=== PATIENT | female | born 2000 | race Caucasian/White ===

== ENCOUNTER 2021-07-13 12:28 | Observation (INO) | payer MEDICAID ==
[~2021-07-13] VITALS: Ht 160 cm; Wt 122.5 kg
[2021-07-13] MEDS ORDERED: AMOX-494 MT (13:56)
[2021-07-13] MEDS ORDERED: PREN-118 PO (13:56)
== END 2021-07-13 15:50 | disposition home or self-care (01) ==
LOC: 8 EST LDRP 12:28
PROVIDERS: ADMIT Obstetrics & Gynecology; ATTEND Obstetrics & Gynecology
DX: O36.8130 Decreased fetal movements, third trimester, not applicable or unspecified (principal); Z3A.38 38 weeks gestation of pregnancy
CPT/HCPCS: 59025; 76805; 76818; 99281; G0378

== ENCOUNTER 2021-07-16 13:25 | Observation (INO) | payer MEDICAID ==
[~2021-07-16] VITALS: Ht 160 cm; Wt 113.4 kg
[~2021-07-16 13:25] MED LIST: AMOX-494 MT; PREN-118 PO
== END 2021-07-16 17:10 | disposition home or self-care (01) ==
LOC: 8 EST LDRP 13:25
PROVIDERS: ADMIT Obstetrics & Gynecology; ATTEND Obstetrics & Gynecology
DX: O36.8130 Decreased fetal movements, third trimester, not applicable or unspecified (principal); Z3A.38 38 weeks gestation of pregnancy
CPT/HCPCS: 59025; 76815; 76818; G0378; 99281

== ENCOUNTER 2021-07-23 07:02 | Inpatient (IN) | payer MEDICAID ==
[~2021-07-23] VITALS: Ht 160 cm; Wt 113.4 kg
[2021-07-23] MEDS ORDERED: NALOXONE HCL 0.4 MG/ML 1ML VIAL IM PRN (12:00)
[2021-07-23] MEDS ORDERED: METHYLERGONOVINE MALEATE 0.2 MG/ML IM PRN (12:00)
[2021-07-23] MEDS ORDERED: RHO(D) IMMUNE GLOBULIN 300 MCG/SYR IM NR (12:00)
[2021-07-23] MEDS ORDERED: DEXT 5%/LR + PITOCIN 20UNITS/L 1,000 ML IV SCH (12:00)
[2021-07-23] MEDS ORDERED: DEXT 5%/LACTATED RINGERS 1,000 ML IV SCH (12:00)
[2021-07-23] MEDS ORDERED: LIDOCAINE HCL 1% 10 MG/ML 10ML VIAL IJ SCH (12:00)
[2021-07-23] MEDS: MISOPROSTOL 100MCG TABLET VG SCH ×2 (13:02→17:06)
[2021-07-23] MEDS: LACTATED RINGERS 1,000 ML IV SCH ×3 (13:17→23:32)
[2021-07-23 14:41] LABS: BASOPHILS % 0.2 % (0.0-2.0); EOSINOPHILS % 0.2 % (0.0-5.0); HEMATOCRIT. 40.1 % (36.0-48.0); HEMOGLOBIN. 13.8 g/dL (12.0-16.0); LYMPHOCYTES % 21.1 % (20.0-50.0); MEAN CORPUSCULAR HEMOGLOBIN 29.8 pg (28.0-32.0); MEAN CORPUSCULAR VOLUME 86.7 fL (81.0-99.0); MEAN PLATELET VOLUME 10.6 fl (7.4-10.4); MONOCYTES % 5.6 % (2.0-8.0); NEUTROPHILS % 72.9 % (40.0-76.0); PLATELET 145 x1000/uL (130-400); RED BLOOD CELL COUNT 4.63 mill/uL (4.2-5.4); RED CELL DISTRIBUTION WIDTH 13.2 % (11.6-14.6)
[2021-07-23 14:53] LABS: INR 0.9; PARTIAL THROMBOPLASTIN TIME 28.1 sec (23.4-31.0); PROTHROMBIN TIME 9.8 sec (9.6-11.0)
[2021-07-23 15:16] LABS: CLARITY URINE CLEAR (CLEAR); COLOR URINE YELLOW (YELLOW); KETONES URINE NEGATIVE (NEGATIVE); LEUKOCYTE ESTERASE URINE NEGATIVE (NEGATIVE); NITRITE URINE NEGATIVE (NEGATIVE); OCCULT BLOOD URINE NEGATIVE (NEGATIVE); PROTEIN URINE NEGATIVE (NEGATIVE); SPECIFIC GRAVITY URINE 1.027 (1.005-1.030); UROBILINOGEN URINE 0.2 E.U./dL (0.2-1.0)
[2021-07-23 15:19] LABS: HEPATITIS B SURFACE ANTIGEN NEGATIVE
[2021-07-23 15:20] LABS: *BARBITURATES SCREEN URINE NEGATIVE (NEGATIVE)
[2021-07-23 15:21] LABS: *AMPHETAMINES SCREEN URINE NEGATIVE (NEGATIVE); *BENZODIAZEPINES SCREEN URINE NEGATIVE (NEGATIVE); *COCAINE SCREEN URINE NEGATIVE (NEGATIVE); METHADONE URINE SCREEN NEGATIVE (NEGATIVE); OPIATES URINE SCREEN NEGATIVE (NEGATIVE)
[2021-07-23 15:22] LABS: CANNABINOID URINE SCREEN NEGATIVE (NEGATIVE); PHENCYCLIDINE URINE SCREEN NEGATIVE (NEGATIVE)
[2021-07-23] MEDS ORDERED: FENTANYL CITRATE/PF 50MCG/ML 2ML VIAL ONE (18:30)
[2021-07-23] MEDS ORDERED: ROPIVACAINE HCL/PF 100ML 100 ML ONE (18:31)
[2021-07-23] MEDS ORDERED: BUPIVACAINE HCL/PF 0.25% (2.5MG/ML) 10ML ONE (18:31)
[2021-07-24] MEDS ORDERED: PHENYLEPHRINE HCL 10 MG/ML 1ML (IV VIAL) IV ONE (01:48)
[2021-07-24] MEDS ORDERED: ONDANSETRON HCL 4MG/2ML INJ IV PRN ×2 (02:00→03:15)
[2021-07-24] MEDS ORDERED: HYDROMORPHONE HCL/PF 2MG/ML CPJ IV PRN (02:00)
[2021-07-24] MEDS ORDERED: DIPHENHYDRAMINE 50MG/ML VIAL IV PRN (02:00)
[2021-07-24] MEDS ORDERED: MEPERIDINE HCL/PF 25MG/ML CPJ IV PRN (02:00)
[2021-07-24] MEDS ORDERED: BUTORPHANOL TARTRATE 2 MG/ML VIAL IM PRN (02:00)
[2021-07-24] MEDS ORDERED: LABETALOL 5MG/ML SYR 20 MG/4 ML SYRINGE IV PRN (02:00)
[2021-07-24] MEDS ORDERED: MIDAZOLAM HCL 2 MG/2 ML VIAL ONE (02:26)
[2021-07-24] MEDS ORDERED: FENTANYL CITRATE/PF 50MCG/ML 2ML VIAL ONE (02:26)
[2021-07-24] MEDS ORDERED: MORPHINE SULFATE/PF 1MG/ML 10ML AMP ONE (02:28)
[2021-07-24] MEDS ORDERED: HYDROCODONE/ACETAMINOPHEN 5/325MG TABLET PO PRN ×2 (03:15)
[2021-07-24] MEDS ORDERED: RHO(D) IMMUNE GLOBULIN 300 MCG/SYR IM PRN (03:15)
[2021-07-24] MEDS ORDERED: DEXT 5%/LR + PITOCIN 20UNITS/L 1,000 ML IV SCH (03:15)
[2021-07-24] MEDS ORDERED: BISACODYL 10MG SUPP PR PRN (03:15)
[2021-07-24] MEDS ORDERED: DIPHENHYDRAMINE 25MG CAPSULE PO PRN (03:15)
[2021-07-24] MEDS ORDERED: LANOLIN OINT 7GM TUBE TOP PRN (03:15)
[2021-07-24] MEDS: KETOROLAC 30MG/ML VIAL IV PRN ×2 (04:05→18:13)
[2021-07-24 05:15] VITALS: BP 112/58
[2021-07-24 08:00] VITALS: BP 103/66
[2021-07-24] MEDS ORDERED: TETANUS, DIPHTHERIA, PERTUSSIS VAC/PF 0.5ML (>10YR OLD) IM ONE (09:00)
[2021-07-24 12:30] VITALS: BP 120/68
[2021-07-24 16:08] VITALS: BP 106/58
[2021-07-24] MEDS: LACTATED RINGERS 1,000 ML IV SCH (18:19)
[2021-07-24 20:00] VITALS: BP 110/62
[2021-07-24] MEDS ORDERED: DOCUSATE SODIUM 100MG CAPSULE PO SCH (21:00)
[2021-07-25 04:00] VITALS: BP 98/62
[2021-07-25 06:04] LABS: BASOPHILS % 0.3 % (0.0-2.0); EOSINOPHILS % 0.6 % (0.0-5.0); HEMATOCRIT. 33.6 % (36.0-48.0); HEMOGLOBIN. 11.4 g/dL (12.0-16.0); LYMPHOCYTES % 15.9 % (20.0-50.0); MEAN CORPUSCULAR HEMOGLOBIN 29.7 pg (28.0-32.0); MEAN CORPUSCULAR VOLUME 87.4 fL (81.0-99.0); MEAN PLATELET VOLUME 10.5 fl (7.4-10.4); MONOCYTES % 7.5 % (2.0-8.0); NEUTROPHILS % 75.7 % (40.0-76.0); PLATELET 113 x1000/uL (130-400); RED BLOOD CELL COUNT 3.84 mill/uL (4.2-5.4); RED CELL DISTRIBUTION WIDTH 13.3 % (11.6-14.6)
[2021-07-25 07:40] VITALS: BP 108/71
[2021-07-25] MEDS: PRENATAL VIT/FE FUMARATE/FA TABLET PO SCH (08:48)
[2021-07-25] MEDS: IBUPROFEN 400MG TABLET PO PRN ×3 (08:49→22:52)
[2021-07-25 15:04] VITALS: BP 115/81
[2021-07-25 20:30] VITALS: BP 115/73
[2021-07-26 03:30] VITALS: BP 110/79
[2021-07-26] MEDS: IBUPROFEN 400MG TABLET PO PRN ×2 (04:16→10:43)
[2021-07-26 07:52] VITALS: BP 107/77
[2021-07-26] MEDS: PRENATAL VIT/FE FUMARATE/FA TABLET PO SCH (08:32)
[2021-07-26] MEDS ORDERED: IBUP-2029 MT (10:07)
== END 2021-07-26 11:10 | disposition home or self-care (01) | DRG 540 ==
LOC: 8 EST LDRP 07:02 → OBSVTOIN 07:03 → 8EST 07-24 04:21
PROVIDERS: ADMIT Obstetrics & Gynecology; ATTEND Obstetrics & Gynecology
PROC: 10D00Z1 Extraction of Products of Conception, Low, Open Approach (ICD-10-PCS; principal; 2021-07-24)
DX: O76 Abnormality in fetal heart rate and rhythm complicating labor and delivery (principal); D62 Acute posthemorrhagic anemia; O41.03X0 Oligohydramnios, third trimester, not applicable or unspecified; O90.81 Anemia of the puerperium; Z20.822 Contact with and (suspected) exposure to COVID-19; O36.8130 Decreased fetal movements, third trimester, not applicable or unspecified; Z37.0 Single live birth; Z3A.39 39 weeks gestation of pregnancy
CPT/HCPCS: 36415; 76815; 76818; 80305; 81003; 85025; 86592; 86703; 86762; 86850; 86900; 87340; 87426; 88307; 90715; G0378; J1885; J2250; J2274; J2370; J2590; J2795; J3010; J3490; J7120; A4315